=== PATIENT | female | born 1935 | race Caucasian/White ===

== ENCOUNTER 2017-02-06 10:14 | Inpatient (IN) | payer MEDICARE ==
[~2017-02-06 10:14] MED LIST: HYDROCODON-ACE1 EA15 PO; LEVOTHYROXINE100 MC1 PO; METHADONE HCL5 M2 PO; METOPROLOL TART25 M1 PO; METOPROLOL TART50 M2 PO; MYRBETRIQ50 M1 PO; PAIN RELIEF500 M4 PO; PREDNISONE PO; PREDNISONE5 M1 PO; STOOL SOFTNER PO; TUMS ULTRA400 MG PO; VITAMIN D35000 UNI3 PO
[2017-02-06 11:51] LABS: BASO % 0.4 % (0-2); EOS % 3.9 % (0-7); EOSINOPHIL ABSOLUTE COUNT 0.3 tho/cmm (0.0-0.7); HCT-HEMATOCRIT 43.6 % (34.0-49.0); HGB-HEMOGLOBIN 13.8 gm/dl (12.0-15.5); IMMATURE GRANULOCYTES ABSOLUTE 0.01 tho/cmm (0-0.03); IMMATURE GRANULOCYTES PERCENT 0.1 % (0-0.3); LYMPH % 10.1 % (20-45); LYMPH ABSOLUTE COUNT 0.7 tho/cmm (0.8-4.5); MCH (MEAN CORPUSCULAR HGB) 35.7 pg (28.0-32.0); MCHC MEAN CORPUSCULAR HGB CONC 31.7 % (32.0-36.0); MCV (MEAN CELL VOLUME) 112.7 fl (82.0-96.0); MEAN PLATELET VOLUME 10.3 cmc (9.4-12.4); MONOCYTE ABSOLUTE COUNT 0.8 tho/cmm (0.0-1.2); NEUTROPHIL ABSOLUTE COUNT 5.2 tho/cmm (1.6-8.0); NEUTROPHIL-AUTOMATED 5.2 tho/cmm (1.6-8.0); NEUTROPHILS % 74.5 % (40-80); PLATELET COUNT 287 tho/cmm (150-450); RED BLOOD COUNT 3.87 mil/cmm (4.00-5.20); RED CELL DISTRIBUTION WIDTH 13.2 % (12.4-16.4); WHITE BLOOD COUNT 6.9 tho/cmm (4.0-10.0)
[2017-02-06 12:13] LABS: ALB/GLOB RATIO 0.6 (0.8-2.0); ALBUMIN 3.1 g/dl (3.5-5.0); ALKALINE PHOSPHATASE 82 U/L (33-138); ALT/SGPT 19 U/L (12-78); ANION GAP 11 mmol/L (0-20); AST/SGOT 27 U/L (10-40); BILIRUBIN,TOTAL 0.4 mg/dl (0-1.5); BLOOD UREA NITROGEN 47 mg/dl (6-24); CALCIUM 8.9 mg/dl (8.5-10.5); CARBON DIOXIDE-VENOUS 31 mmol/L (22-32); CHLORIDE 107 mmol/l (96-110); CREATININE 0.89 mg/dl (0.50-1.10); GLUCOSE 105 mg/dL (70-110); POTASSIUM 4.3 mmol/L (3.7-5.1); SODIUM 145 mmol/L (135-145); eGFR VALUE FOR BLACK 69 mL/Min
[2017-02-06 13:10] LABS: URINE BILIRUBIN NEGATIVE (NEG); URINE BLOOD SMALL (NEG); URINE GLUCOSE (UA) NEGATIVE (NEG); URINE KETONE SMALL (NEG); URINE LEUKOCYTE ESTERASE POSITIVE (NEG); URINE NITRITE NEGATIVE (NEG); URINE PROTEIN MODERATE (NEG)
[2017-02-06 13:14] LABS: URINE APPEARANCE HAZY; URINE COLOR YELLOW
[2017-02-06 13:47] LABS: URINE RBC 0-1 /[HPF] (0-5)
[2017-02-06 13:48] LABS: URINE MUCUS 3+
[2017-02-07 04:56] LABS: BASO % 0.6 % (0-2); EOS % 4.8 % (0-7); EOSINOPHIL ABSOLUTE COUNT 0.2 tho/cmm (0.0-0.7); HCT-HEMATOCRIT 40.5 % (34.0-49.0); HGB-HEMOGLOBIN 12.8 gm/dl (12.0-15.5); LYMPH % 20.6 % (20-45); MCH (MEAN CORPUSCULAR HGB) 35.2 pg (28.0-32.0); MCHC MEAN CORPUSCULAR HGB CONC 31.6 % (32.0-36.0); MCV (MEAN CELL VOLUME) 111.3 fl (82.0-96.0); MEAN PLATELET VOLUME 10.4 cmc (9.4-12.4); MONO % 11.2 % (0-12); MONOCYTE ABSOLUTE COUNT 0.5 tho/cmm (0.0-1.2); NEUTROPHILS % 62.8 % (40-80); PLATELET COUNT 272 tho/cmm (150-450); RED BLOOD COUNT 3.64 mil/cmm (4.00-5.20); RED CELL DISTRIBUTION WIDTH 13.1 % (12.4-16.4); WHITE BLOOD COUNT 4.8 tho/cmm (4.0-10.0)
[2017-02-07 05:09] LABS: ANION GAP 14 mmol/L (0-20); BLOOD UREA NITROGEN 35 mg/dl (6-24); CALCIUM 8.6 mg/dl (8.5-10.5); CARBON DIOXIDE-VENOUS 29 mmol/L (22-32); CHLORIDE 108 mmol/l (96-110); CREATININE 0.61 mg/dl (0.50-1.10); GLUCOSE 91 mg/dL (70-110); MAGNESIUM 2.1 mg/dl (1.8-2.6); SODIUM 147 mmol/L (135-145); eGFR VALUE FOR BLACK >90 mL/Min
[2017-02-07 05:13] LABS: TSH-THYROID STIMULATING HORM. 1.56 uIU/ml (0.40-3.80)
--- NOTE | 2017-02-07 19:49 | NUR ---
VIRTUAL CARE NOTE: ASSESSMENT DEFERRED. PT. SLEEPING.
[2017-02-08 05:26] LABS: HGB-HEMOGLOBIN 13.5 gm/dl (12.0-15.5); PLATELET COUNT 303 tho/cmm (150-450)
[2017-02-08 05:35] LABS: BLOOD UREA NITROGEN 34 mg/dl (6-24); CALCIUM 8.6 mg/dl (8.5-10.5); CARBON DIOXIDE-VENOUS 33 mmol/L (22-32); CHLORIDE 108 mmol/l (96-110); GLUCOSE 106 mg/dL (70-110); SODIUM 145 mmol/L (135-145); eGFR VALUE FOR BLACK 56 mL/Min
[2017-02-08 05:39] LABS: ANION GAP 9 mmol/L (0-20); CREATININE 1.07 mg/dl (0.50-1.10); POTASSIUM 5.3 mmol/L (3.7-5.1)
== END 2017-02-08 07:55 | disposition expired | DRG 603 ==
LOC: EDMED 10:14 → EMR2 13:57 → 5WD 16:30
PROVIDERS: Nurse Practitioner Family; ADMIT Internal Medicine
DX: L03.221 Cellulitis of neck (principal); E87.0 Hyperosmolality and hypernatremia; D64.9 Anemia, unspecified; F03.90 Unspecified dementia, unspecified severity, without behavioral disturbance, psychotic disturbance, mood disturbance, and anxiety; B37.2 Candidiasis of skin and nail; I10 Essential (primary) hypertension; M06.9 Rheumatoid arthritis, unspecified; Z51.5 Encounter for palliative care; Z66 Do not resuscitate; E03.9 Hypothyroidism, unspecified; I46.9 Cardiac arrest, cause unspecified; M40.209 Unspecified kyphosis, site unspecified; N32.81 Overactive bladder; G89.29 Other chronic pain; Z79.52 Long term (current) use of systemic steroids; Z79.899 Other long term (current) drug therapy; Z96.652 Presence of left artificial knee joint
CPT/HCPCS: J0696; J1650; J7030; J7512; P9612